=== PATIENT | female | born 1965 | race African-American/Black ===

== ENCOUNTER → 2024-04-06 | Outpatient (CLI) | payer BC, SELFPAY ==
[2024-04-06 12:15] LABS: Basophils # (Auto) 0.1 Thou/mm3 (0.0-0.2); Basophils % (Auto) 1 % (0-2.5); Eosinophils # (Auto) 0.1 Thou/mm3 (0.0-0.5); Eosinophils % (Auto) 1 % (0-10); Hematocrit 36.9 % (36.0-46.0); Hemoglobin 12.1 g/dL (12.0-16.0); Immature Granulocytes % (Auto) 1 % (0-0); Immature Granulocytes Auto 0.04 Thou/mm3 (0.00-0.00); Lymphocytes # (Auto) 1.2 Thou/mm3 (1.0-4.8); Lymphocytes % (Auto) 14 % (10-50); Mean Corpuscular HGB Conc 32.8 g/dl (31.0-37.0); Mean Corpuscular Hemoglobin 33.8 pg (25.0-35.0); Mean Corpuscular Volume 103 fL (80-100); Monocytes # (Auto) 0.6 Thou/mm3 (0.0-0.8); Monocytes % (Auto) 7 % (0-12); Neutrophils # (Auto) 6.4 Thou/mm3 (1.8-7.7); Neutrophils % (Auto) 76 % (37-80); Nucleated Red Blood Cell % 0 /100 WBC (0); Platelet Count 340 Thou/mm3 (140-440); RDW Standard Deviation 55.5 fL (36.4-46.3); Red Blood Count 3.58 Miln/mm3 (4.00-5.20); White Blood Count 8.3 Thou/mm3 (3.6-11.0)
[2024-04-06 12:30] LABS: Alanine Aminotransferase 10 U/L (10-49); Albumin, Serum 4.9 gm/dL (3.4-4.8); Alkaline Phosphatase 112 U/L (46-116); Anion Gap 7 (7-16); Aspartate Amino Transferase 27 U/L (0-34); BUN/Creatinine Ratio 13 Ratio (12-20); Bilirubin,Total 0.5 mg/dL (0.3-1.2); Blood Urea Nitrogen 12 mg/dL (9-23); Carbon Dioxide 26.4 mMol/L (20.0-31.0); Chloride 101 mMol/L (98-107); Creatinine (Component) 0.9 mg/dL (0.6-1.3); Globulin 2.4 gm/dL (2.3-3.5); Glucose 101 mg/dL (74-106); Osmolality,Calculated 267 (275-295); Potassium 4.2 mMol/L (3.4-5.1); Sodium 134 mMol/L (136-145); Total Protein 7.3 gm/dL (5.7-8.2); eGFR > 60 See Note
== END | disposition home or self-care (01) ==
LOC: SCTO 10:58
PROVIDERS: PCP Family Medicine; Referring Provider Radiology Therapeutic Radiology; Visit Provider Radiology Therapeutic Radiology
DX: C34.11 Malignant neoplasm of upper lobe, right bronchus or lung (principal)
CPT/HCPCS: 36415; 80053; 85025

== ENCOUNTER → 2024-04-10 | Outpatient (CLI) | payer BC, SELFPAY ==
--- NOTE | 2024-04-10 09:00 | XR_ITS ---
Examination: CT chest with intravenous contrast 2-D sagittal and coronal reconstructions Exam date and time: April 10, 2024 1037 hours INDICATIONS: Diagnosis malignant neoplasm upper right lobe bronchus, undergoing treatment for lung cancer, restaging, CT chest September 28, 2023 multiple pulmonary masses CTDI:vol (mGy) 6.4 DLP: (mGycm) 253 Technique: Multiple axial sections of the thorax have been obtained. Sections have been obtained, 3 mm slice thickness. Mediastinal and lung density settings have been obtained. Intravenous contrast administered, 60 cc Isovue-370. 2-D sagittal, coronal images obtained. Low dose protocols were performed. One or more of the following dose reduction techniques were used; automated exposure control, adjustment of the mA and/or KV according to patient size, use of iterative reconstruction technique. Findings: The spiculated mass in the right upper lobe is very difficult to measure with irregular margins however the transverse dimension of this mass on the current exam is closer to 35 mm compared to 19 mm on September 28, 2023 No additional pulmonary masses No pneumonia or pulmonary edema AP dimension ascending thoracic aorta 35 mm Pulmonary artery segments are not enlarged No interval pneumonia or pulmonary edema No focal liver or splenic lesions No hydronephrosis IMPRESSION: The spiculated pulmonary mass in the right upper lobe is very difficult to measure, it has very irregular margins but the transverse dimension of this mass is closer to 35 mm on this study compared to 19 mm on September 28, 2023
== END | disposition home or self-care (01) ==
LOC: SCAT 08:42
PROVIDERS: PCP Family Medicine; Referring Provider Radiology Therapeutic Radiology; Visit Provider Radiology Therapeutic Radiology
DX: R91.8 Other nonspecific abnormal finding of lung field (principal); C34.11 Malignant neoplasm of upper lobe, right bronchus or lung
CPT/HCPCS: 71260; A4649; Q9967

== ENCOUNTER 2024-06-08 08:29 | Outpatient (RCR) | payer BC, SELFPAY ==
--- NOTE | 2024-06-08 09:30 | CTCFLWUP_ITS ---
[facility] [address] [place], [place] [address] FOLLOW-UP NOTE Date: 06/08/2024 MR#: [id number] Name: DAKOTAH GUTIERREZ : 1965 Dx: C34.11 Malignant neoplasm of upper lobe, right bronchus or lung Identification. Patient with non-small cell CA biopsy right upper lesion 08/06/2022. PET scan indicated 30 x 28 mm right upper lobe stage I [id number]. Underwent SBRT 5000 cGy in 5 fractions completed 01/03/2023. Post PET 01/21/2023 showed smaller lesion with pleural-based pulmonary nodule left chest. New PET scan 12/16/2023 showed weakly hypermetabolic right upper lobe 17 mm and right lower lobe 27 mm. Attempted another biopsy with CT showing enlarging lesion was attempted but she declined. Saw patient today and she appears to have a moderate pain but states that he was being managed with c urrent regimen of Percocet gabapentin and tizanidine. States that she feels that the cancer may be recurring but is not interested in further radiographs o r diagnostic studies. And not yet ready for hospice. Told her that I will still need to see her kacey ry 3 months to justify giving controlled pain meds. Patient agreed. Electronically signed by: Jose Vizcarra M.D. 06/08/2024 9:28 AM
== END 2024-06-16 23:59 | disposition home or self-care (01) ==
LOC: SCTC 08:29
PROVIDERS: PCP Family Medicine; Referring Provider Family Medicine; Visit Provider Radiology Therapeutic Radiology
DX: C34.11 Malignant neoplasm of upper lobe, right bronchus or lung (principal); Z92.3 Personal history of irradiation
CPT/HCPCS: 99213; G0463

== ENCOUNTER 2024-09-06 08:10 | Outpatient (RCR) | payer BC, SELFPAY ==
--- NOTE | 2024-09-06 09:06 | CTCFLWUP_ITS ---
[facility] [address] [place], [place] [address] FOLLOW-UP NOTE Date: 09/06/2024 MR#: [id number] Name: DAKOTAH GUTIERREZ : 1965 Dx: C34.11 Malignant neoplasm of upper lobe, right bronchus or lung Identification. Patient with non-small cell of the lung right upper lobe 08/06/2022. Underwent SBRT 5000 cGy completed 01/03/2023. Initial good response noted on PET scan. Most recent scan however on 04/10/2024 showed enlarging right upper lobe mass 35 mm compared to about twice the size as before. PET scan on 12/16/2023 suggest a right lower lobe lesion as well. Patient is having pain in the left side of the chest but does not want any more workup done. Interested in going to hospice. Current regimen of Percocet 5 every 6 gabapentin 600 mg 3 times daily and tinazidine not helping her pain enough Assessment.#!. recurrent metastatic lung CA. Patient desires hospice referral. #2. Hospice referral. Inform Dr. Rick Arriaga primary care physician. #3. Add OxyContin 20 mg twice daily to current regimen. Electronically signed by: Jose Vizcarra M.D. 09/06/2024 9:04 AM
== END 2024-09-13 23:59 | disposition home or self-care (01) ==
LOC: SCTC 08:10
PROVIDERS: PCP Family Medicine; Referring Provider Family Medicine; Visit Provider Radiology Therapeutic Radiology
DX: C34.11 Malignant neoplasm of upper lobe, right bronchus or lung (principal); Z92.3 Personal history of irradiation
CPT/HCPCS: 99213; G0463

== ENCOUNTER 2024-10-10 21:40 | Emergency (ER) | payer BC, SELFPAY ==
[2024-10-10 21:52] VITALS: BP 163/84; PULSE 102; RESP 18; TEMP 36.8; O2SAT 97
--- NOTE | 2024-10-10 22:04 | XR_ITS ---
Examination: Right femur 2 views Technique AP lateral right femur 2 views INDICATIONS: Patient fell today with injury to the femur, femur pain Date and time: October 10, 2024 1057 hours. FINDINGS: Acute fractures distal femoral shaft, without significant displacement On the lateral view 18 mm bone fragment displaced mildly anteriorly Fractures do not extend to the femoral condylar region Hip intact IMPRESSION: Acute comminuted fractures supracondylar distal femoral shaft
--- NOTE | 2024-10-10 22:04 | PD.EDFALL ---
ED Fall Injury RME/HPI General Chief Complaint: Extremity Injury, Lower Stated Complaint: FALL Time Seen by Provider: 10/10/24 22:48 Arrival date/time: 10/10/24 21:40 RME / HPI RME / HPI Narrative: This section includes all my notes and documentations, including HPI, PE, and ED course. Ronaldo Vizcarra MD HPI: 59 y/o female with Hx of Lambert-Eaton myasthenic syndrome, Arthritis, Degenerative Disc Disease, and Degenerative Joint Disease presents to ED BIBA from home c/o right knee pain s/p mechanical fall just prior to our arrival. Denies hitting her head or LOC. Landed on her right knee. Reports severe right knee pain. No other complaints. ROS: All negative except as documented in HPI. Physical Exam: General: Alert and oriented. No acute distress. Eyes: Conjunctivae and lids clear. ENT: No signs of head trauma. Neck: Supple. No tenderness. Heart: RRR. Lungs: No respiratory distress. Good air movement. No rhonchi, wheezing, rales. Chest: No tenderness. Abdomen: Soft and nontender. Normal bowel sounds. No distension. No rebound or guarding. Back: No tenderness. Skin: Warm and dry. Neuro: Alert and oriented X 3. Cranial Nerves II-XII grossly intact. No peripheral motor deficits. Musculoskeletal: Remarkable for right knee tenderness and right foot tenderness. All other major joints and bones are not tender with no limited ROM. I reviewed EMS notes. I reviewed all diagnostic test results. My interpretation of the femur x-ray is acute comminuted fractures supracondylar distal femoral shaft. My interpretation of the foot x-ray is nondisplaced acute fracture fifth metatarsal. Tiny chip fracture off the base of the first metatarsal. My interpretation of the tibia/fibula x-ray is no acute fractures lower leg. At this point, diagnoses include right knee fracture and right foot fracture. Treatment here included knee immobilizer, Lidocaine patches, crutches, and postop shoe. Recommended supportive care and more outpatient treatment. Based on my best medical judgment, made decision no further evaluation or treatment indicated at this time. Patient understands and agrees to the discharge instructions customized and printed, see below. Discharge Instructions from Dr. Vizcarra printed for you: 1. Unfortunately, you broke your right knee and right foot. 2. Wear the knee immobilizer and postop shoe and no weightbearing using the crutches until cleared by a doctor taking care of you. 3. Apply ice for 20 minutes every 2-3 hours today and tomorrow. 4. Elevate above the waist level for 3 days is much as possible. 5. Ibuprofen 400 mg every 6-8 hours today and tomorrow to decrease inflammation then as needed. 6. Lidocaine patches and Tylenol with codeine for more help with pain. 7. See a private doctor on 10/12/2024. Ask for a referral to see orthopedist. 8. Seek immediate medical care with intolerable pain, if you can't move your toes, your toes turn cold and blue, or with any concerns. Ronaldo Vizcarra MD Related Data Home Medications ?Medication ?Instructions ?Recorded ?Confirmed amlodipine 5 mg tablet 5 mg PO DAILY 01/22/24 01/22/24 gabapentin 300 mg capsule 600 mg PO TID 01/22/24 01/22/24 hydrocodone 5 mg-acetaminophen 325 1 tab PO Q6H PRN Pain 01/22/24 01/22/24 mg tablet tizanidine 2 mg tablet 4 mg PO BID 01/22/24 01/22/24 Previous Rx's ?Medication ?Instructions ?Recorded acetaminophen 300 mg-codeine 30 mg 1 tab PO Q8H PRN pain #20 tabs 10/11/24 tablet lidocaine 5 % topical patch 2 patch topical QDAY PRN pain #30 10/11/24 (Lidoderm) ea Allergies Allergy/AdvReac Type Severity Reaction Status Date / Time No Known Allergies Allergy Verified 10/10/24 22:44 Review of Systems Review of Systems Systems Reviewed: All systems reviewed, normal except as documented Past Medical History Past Medical History NEUROLOGIC: Positive Neurological Disorders (Lambert-Eaton myasthenic syndrome(LEMS)) and Migraine (occasionally) CARDIAC: Positive Cardiac Disorders and Hypertension RESPIRATORY: Positive Asthma REPRODUCTIVE: Positive Previous Pregnancies (x1) MUSCULOSKELETAL: Positive Musculoskeletal Disorders, Arthritis, Degenerative Disk Disease, Fractures and Degenerative Joint Disease OTHER HISTORY: Positive Radiation Therapy, Cancer and Lung Cancer Family History FAMILY HISTORY: Positive Family Cancer Surgical History SURGICAL: Positive Tubal Ligation Social History SMOKING STATUS: Current every day smoker ED Exam Narrative Physical exam: Refer to HPI above Course Quality Measures none Orders Category Date Time Status Apply knee immobilizer NOW Care 10/11/24 00:08 Active Crutches .NOW Care 10/11/24 00:11 Active Miscellaneous Nursing Order NOW Care 10/11/24 00:35 Active XR femur RT 2V Stat Exams 10/10/24 22:04 Completed XR foot comp RT min 3V Stat Exams 10/10/24 23:19 Completed XR tibia fibula RT 2V Stat Exams 10/10/24 22:05 Completed Lidocaine 5% Patch Med 10/11/24 00:11 Discontinued 2 patch TOP X1 ONE Vital Signs Vital signs: Vital Signs Temperature 98.3 F 10/10/24 21:52 Pulse Rate 102 H 10/10/24 21:52 Respiratory Rate 18 10/10/24 21:52 Blood Pressure 163/84 H 10/10/24 21:52 Pulse Oximetry (%) 97 10/10/24 21:52 Oxygen Delivery Method Room Air 10/10/24 21:52 Fall MDM Narrative MDM Narrative:: Scribe Attestation: Lalita Taylor, am scribing for and in the presence of Dr. Vizcarra. Provider Notation: Although this document has been carefully reviewed, there may still be some phonetic and other typographical errors.? These errors are purely grammatical due to imperfections in the software program and should not be construed in any way to? compromise the substance of the patient's medical care during this visit. 59 y/o female with Hx of Lambert-Eaton myasthenic syndrome, Arthritis, Degenerative Disc Disease, and Degenerative Joint Disease presents to ED [facility] from home c/o right knee pain s/p mechanical fall. Denies hitting her head or LOC. No other complaints. Patient data External records reviewed:: [facility] previous records (Reviewed prior ED records from 01/22/24. Patient was seen for Dehydration.) and EMS form Clinical information provided by:: patient and EMS Social determinants that could affect healthcare access:: none Patient has the following chronic illnesses:: Migraine, Hypertension, AsthmaLambert-Eaton myasthenic syndrome, Arthritis, Degenerative Disc Disease, and Degenerative Joint Disease How is presenting disease/condition affected by chronic disease/condition?: exacerbated by Evaluation data The following diagnostics were reviewed and interpreted by me:: radiology exam(s) Lab and/or radiology exams considered but not ordered:: None Interpretation Summary: I reviewed all diagnostic test results. My interpretation of the femur x-ray is acute comminuted fractures supracondylar distal femoral shaft. My interpretation of the foot x-ray is nondisplaced acute fracture fifth metatarsal. Tiny chip fracture off the base of the first metatarsal. My interpretation of the tibia/fibula x-ray is no acute fractures lower leg. Medications / Prescriptions Medications or Prescriptions considered but not ordered:: None Medication administrations:: Medication Administration History Discontinued Medications Lidocaine (Lidocaine 5% 1 Patch) 2 patch TOP X1 ONE Stop: 10/11/24 00:12 Last Admin: 10/11/24 00:26 Dose: 2 patch Documented By: JOHN Comments: RIGHT KNEE Lidocaine Patches Consultations Consultation(s) initiated? (list below): No Diagnosis Fall Differential Diagnosis: syncope, compression fracture and other (Fracture of Tibia, Fracture of Fibula, Contusion, Abrasion) Most likely diagnosis given after review of the tests above:: Right knee fracture with right foot fracture Admission Indicated Admission indicated?: not indicated Explain why admission is indicated or not indicated:: There was no indication for admission with no injuries needing immediate intervention. Admission Request Was there a request for admission?: No Disposition Plan Disposition Plan: Discharge Discharge Attestation Discharge Attestation: The patient and all family members were given an opportunity to ask questions and understood the discharge instructions. Discharge instructions specifically effects, indications for sooner follow up or return to the emergency department, and the expected course of current diagnosis. Patient condition: Stable Discharge Plan Plan Patient Disposition: HOME (Self Care) Prescriptions/Referrals Prescriptions/Med Rec: New acetaminophen-codeine 300-30 mg tablet 1 tab PO Q8H MDD 6 PRN (Reason: pain) Qty: 20 0RF lidocaine [Lidoderm] 5 % adhesive patch,medicated 2 patch topical QDAY PRN (Reason: pain) Qty: 30 0RF Rx Instructions: leave on most painful area for up to 12 hrs No Action tizanidine 2 mg tablet 4 mg PO BID Patient Comments: TAKE 2 TABLETS BY MOUTH TWICE A DAY hydrocodone-acetaminophen 5-325 mg tablet 1 tab PO Q6H PRN (Reason: Pain) Patient Comments: take 1 tablet by mouth every 6 hours amlodipine 5 mg tablet 5 mg PO DAILY Patient Comments: TAKE 1 TABLET BY MOUTH EVERY DAY FOR 30 DAYS gabapentin 300 mg capsule 600 mg PO TID Patient Comments: TAKE 2 CAPSULES BY MOUTH 3 TIMES A DAY Referrals: Rick Arriaga MD [Primary Care Provider] - In 1 week Problem List Clinical Impression: Knee fracture, right, Fracture of right foot Patient/Caregiver Discharge Instructions Discharge Activity: activity as tolerated Education Materials: ED Fracture, Foot, ED Fracture, Knee Additional Instructions: Discharge Instructions from Dr. Vizcarra printed for you: 1. Unfortunately, you broke your right knee and right foot. 2. Wear the knee immobilizer and postop shoe and no weightbearing using the crutches until cleared by a doctor taking care of you. 3. Apply ice for 20 minutes every 2-3 hours today and tomorrow. 4. Elevate above the waist level for 3 days is much as possible. 5. Ibuprofen 400 mg every 6-8 hours today and tomorrow to decrease inflammation then as needed. 6. Lidocaine patches and Tylenol with codeine for more help with pain. 7. See a private doctor on 10/12/2024. Ask for a referral to see orthopedist. 8. Seek immediate medical care with intolerable pain, if you can't move your toes, your toes turn cold and blue, or with any concerns. Print Language: Citizen Of [place] Stand Alone Forms: Kaycee Award Info., Patient Portal Info Letter
--- NOTE | 2024-10-10 22:05 | XR_ITS ---
Examination: Tibia-Fibula, right , 2 views Technique: Tibia-fibula AP lateral 2 views Date and time of exam: October 10, 2024 1054 hours INDICATIONS: Patient fell today with injury to lower leg, lower leg pain. FINDINGS: No acute fractures lower leg Please see femur report IMPRESSION: No acute fractures lower leg
[2024-10-10 22:44] VITALS: PULSE 104; O2SAT 98; BMI 20.5
[2024-10-10 22:55] VITALS: BP 154/87; PULSE 107; TEMP 36.9; O2SAT 97
--- NOTE | 2024-10-10 23:19 | XR_ITS ---
Examination: Foot, right, 3 views Technique: AP, oblique, lateral views foot, 3 views Date and time of exam: October 10, 2024 11:26 PM INDICATIONS: Patient fell today with injury to foot, foot pain FINDINGS: Severe osteopenia Nondisplaced acute fracture fifth metatarsal neck Tiny chip fracture off the base of the first metatarsal IMPRESSION: Nondisplaced acute fracture fifth metatarsal Tiny chip fracture off the base of the first metatarsal
[2024-10-10 23:56] VITALS: BP 144/87; PULSE 103; RESP 17; TEMP 36.9; O2SAT 95
[2024-10-11] MEDS: LIDOCAINE 5% 1 PATCH 2 PATCH TOP (00:26)
[2024-10-11 00:43] VITALS: BP 150/80; PULSE 72; RESP 16; TEMP 36.8; O2SAT 98
== END 2024-10-11 00:44 | disposition home or self-care (01) ==
PROVIDERS: Emergency Provider Emergency Medicine; PCP Family Medicine
DX: S72.451A Displaced supracondylar fracture without intracondylar extension of lower end of right femur, initial encounter for closed fracture (principal); W19.XXXA Unspecified fall, initial encounter; S92.351A Displaced fracture of fifth metatarsal bone, right foot, initial encounter for closed fracture; S92.311A Displaced fracture of first metatarsal bone, right foot, initial encounter for closed fracture
CPT/HCPCS: 73552; 73590; 73630; 99283; J3490